=== PATIENT | female | born 1955 | race Caucasian/White ===

== ENCOUNTER 2017-04-14 20:06 | Emergency (ER) | payer OTHER ==
[~2017-04-14] VITALS: Ht 170.2 cm; Wt 137.0 kg
[~2017-04-14 20:06] MED LIST: AMOX500T PO; BENI40TA31 PO; CARV12.5 PO; FLAG500T PO; SOLU40IN IM; TRAM50TA PO; [UNRECOGNIZED DRUG - REMARK]
[2017-04-14 20:11] VITALS: BP 154/79; PULSE 103; RESP 16; TEMP 97.7; O2SAT 99
[2017-04-14] MEDS ORDERED: ATOM25 PO (20:28)
[2017-04-14] MEDS ORDERED: FLUO1TAB3 PO (20:28)
[2017-04-14] MEDS ORDERED: LANTUS2P SQ (20:28)
[2017-04-14] MEDS ORDERED: NOVOLOGP2 SQ (20:28)
[2017-04-14] MEDS ORDERED: CARV12.5 PO (20:28)
[2017-04-14] MEDS ORDERED: LIDOCAINE HCL 1% 50 ML VIAL INFIL ONE (20:45)
[2017-04-14] MEDS ORDERED: LIDOCAINE HCL 1% 20 ML VIAL INFIL ONE (21:00)
[2017-04-14] MEDS ORDERED: CEPHALEXIN MONOHYDRATE 500 MG CAP PO ONE (21:45)
[2017-04-14] MEDS ORDERED: SULFAMETHOXAZOLE-TRIMETHOPRIM DS 800-160 MG TAB PO ONE (21:45)
[2017-04-14] MEDS ORDERED: CEPH-460 PO (21:50)
[2017-04-14] MEDS ORDERED: BACT800T5 PO (21:50)
--- NOTE | 2017-04-14 21:51 | RADRPT ---
EXAM DATE/TIME: 04/14/2017 20:58 [facility] COMPARISON: No previous studies available for comparison. INDICATIONS : Possible spider bite to left side lower abdomen. MEDICAL HISTORY : Diabetes mellitus type II. SURGICAL HISTORY : None. ENCOUNTER: Initial ACUITY: 2 days PAIN SCORE: 6/10 LOCATION: Left lower quadrant FINDINGS: The bowel gas is nonspecific. There are no signs of obstruction or free air for technique. No defini te calcified stones are identified for technique. CONCLUSION: Nonspecific abdomen. KKymberly Underwood MD on April 14, 2017 at 21:48 Board Certified Radiologist. This report was verified electronically.
--- NOTE | 2017-04-14 21:51 | PD ---
HPI Chief Complaint: Skin Problem Time Seen by Provider: 20:37 Travel History International Travel<30 days: No Contact w/Intl Traveler<30days: No Traveled to known affect area: No History of Present Illness HPI Patient is a 61-year-old female who comes in complaining of a boil to the left side of her abdomen. She says it has been there for 4 days and is getting worse. She has not noticed any draining from the area. He says it is mildly tender. She has not taken anything for the pain. She is not sure if she got bitten by a spider or if it is from injecting herself with insulin. She denies fever or chills. She has had these in the past. PFSH Past Medical History Asthma: Yes Autoimmune Disease: No Blood Disorders: No Depression: Yes Heart Rhythm Problems: No Cancer: No Cardiovascular Problems: Yes High Cholesterol: No Chest Pain: No Congestive Heart Failure: No COPD: Yes Cerebrovascular Accident: Yes Diabetes: Yes Patient Takes Glucophage: No Diminished Hearing: No Diverticulitis: Yes Endocrine: Yes Genitourinary: No Hypertension: Yes Immune Disorder: No Musculoskeletal: No Neurologic: No Psychiatric: Yes Reproductive: No Respiratory: Yes (COPD) Migraines: No Myocardial Infarction: No Sleep Apnea: No Thyroid Disease: No Tetanus Vaccination: Unknown Influenza Vaccination: No PNEUMOCCOCAL Vaccine (Year): 1 ?: Not Menopausal: Yes Past Surgical History Abdominal Surgery: Yes (DIVERTICULITIS AND ABCESSES) Cardiac Surgery: No Section: Yes Ear Surgery: No Endocrine Surgery: No Eye Surgery: No Genitourinary Surgery: No Gynecologic Surgery: Yes Oral Surgery: No Thoracic Surgery: No Tonsillectomy: Yes Other Surgery: Yes (RIGHT BREAST BIOPSY) Social History Alcohol Use: No Tobacco Use: No Substance Use: No Allergies-Medications (Allergen,Severity, Reaction): Coded Allergies: ciprofloxacin (Unverified Allergy, Severe, 11/24/16) STATES THINKS IT CAUSED TENDON RUPTURE IN PAST guaifenesin (Unverified Allergy, Severe, LEGS RESTLESS, 11/24/16) latex (Unverified Allergy, Severe, ITCHING, 11/24/16) lorazepam (Unverified Allergy, Severe, STATES KEPT HER UP ALL NIGHT , 11/24) trazodone (Unverified Allergy, Severe, RESTLESS LEG SYNDROME, 11/24/16) Uncoded Allergies: "ANYTHING PURPLE" (Adverse Reaction, Unknown, 04/29/14) Reported Meds & Prescriptions Reported Meds & Active Scripts Active Reported Lantus Inj (Insulin Glargine) 1,000 Unit/10 Ml Vial 10 Units SQ HS Novolog Inj (Insulin Aspart) 1,000 Unit/10 Ml Vial 0 SQ DIRECTED Sliding Scale as directed. Fluoxetine (Fluoxetine HCl) 20 Mg Tab 20 Mg PO DAILY Strattera (Atomoxetine HCl) 25 Mg Cap 25 Mg PO DAILY Coreg (Carvedilol) 12.5 Mg Tab 12.5 Mg PO BID Review of Systems General / Constitutional: No: Fever, Chills HENT: No: Headaches, Lightheadedness Cardiovascular: No: Chest Pain or Discomfort Respiratory: No: Shortness of Breath Gastrointestinal: No: Nausea, Vomiting Genitourinary: No: Dysuria Musculoskeletal: No: Myalgias, Weakness Skin: Positive Lesions, No Hives Neurologic: No: Weakness, Dizziness Physical Exam Narrative GENERAL: Awake and alert, in no acute distress. SKIN: Focused skin assessment warm/dry. 4 cm circular area of erythema and warmth to the left lower abdominal wall, small area of fluctuance. HEAD: Atraumatic. Normocephalic. EYES: Pupils equal and round. No scleral icterus. ENT: Mucous membranes pink and moist. CARDIOVASCULAR: Regular rate and rhythm. No murmur appreciated. RESPIRATORY: No accessory muscle use. Clear to auscultation. Breath sounds equal bilaterally. GASTROINTESTINAL: Abdomen soft, non-tender, nondistended. NEUROLOGICAL: Awake and alert. No obvious cranial nerve deficits. Motor grossly within normal limits. Normal speech. Data Data Last Documented VS Vital Signs Date Time Temp Pulse Resp B/P (MAP) Pulse Ox O2 Delivery O2 Flow Rate FiO2 04/14/17 20:11 97.7 103 16 154/79 (104) 99 Orders Orders Abdomen, Kub Only (04/14/17 ) Lidocaine 1% Inj (Xylocaine 1% Inj) (04/14/17 21:00) Sulfamet-Trimeth Ds 800-160 Mg (Bactrim (04/14/17 21:45) Cephalexin (Keflex) (04/14/17 21:45) MDM Medical Decision Making Medical Screen Exam Complete: Yes Emergency Medical Condition: Yes Medical Record Reviewed: Yes Differential Diagnosis Cellulitis versus abscess versus foreign body Narrative Course Patient is a 61-year-old female comes in because of a boil to her lower abdominal wall. Exam shows an area of fluctuance with erythema and warmth. X- ray obtained shows no evidence of foreign body. The abscess was drained and bandaged. Patient given her first dose of Bactrim and Keflex here. Discharged with prescriptions for Bactrim and Keflex. Advised to take all the antibiotics. Advised to keep the area clean and dry. Advised follow-up with her doctor. Advised to return to the ED as needed for any worsening symptoms. Procedures Procedure Narrative INCISION AND DRAINAGE OF ABSCESS: The area was prepped and was sterilely draped. A subcutaneous wheal of 1 % Xylocaine with a total number 8 mL was used to anesthetize the area properly. A number 11 scalpel was used to make a [ -] -cm incision across the area of the abscess. The abscess was drained, complex loculations were broken down, and irrigated with normal saline. Sterile dressing applied. Diagnosis Primary Impression: Abscess Patient Instructions: Abscess (ED), General Instructions Additional Instructions: Take all of your antibiotic. Keep the area clean and dry. Apply warm compresses. Follow-up with your doctor. Return to the ED as needed for any worsening symptoms. Scripts Sulfamethoxazole-Trimethoprim (Bactrim DS) 800-160 Mg Tab 1 TAB PO BID for Infection, #14 TAB 0 Refills Prov: Jazmyn Valero MD 04/14/17 Cephalexin (Keflex) 500 Mg Capsule 500 MG PO QID for Infection for 7 Days, CAP 0 Refills Prov: Jazmyn Valero MD 04/14/17 Disposition: 01 DISCHARGE HOME Condition: Stable Jazmyn Valero MD Apr 14, 2017 21:50
== END 2017-04-14 21:59 | disposition home or self-care (01) ==
LOC: PHEFT 20:06
DX: L02.211 Cutaneous abscess of abdominal wall (principal); J45.909 Unspecified asthma, uncomplicated; F32.9 Major depressive disorder, single episode, unspecified; J44.9 Chronic obstructive pulmonary disease, unspecified; E11.9 Type 2 diabetes mellitus without complications; I10 Essential (primary) hypertension; Z86.73 Personal history of transient ischemic attack (TIA), and cerebral infarction without residual deficits; Z79.4 Long term (current) use of insulin; Z79.899 Other long term (current) drug therapy
CPT/HCPCS: 10060; 74018

== ENCOUNTER 2017-04-25 18:52 | Emergency (ER) | payer OTHER ==
[~2017-04-25] VITALS: Ht 170.2 cm; Wt 137.7 kg
[2017-04-25] VITALS (8 sets, daily range): BP systolic 150–222; BP diastolic 78–104; PULSE 83–104; RESP 20–24; TEMP 97.9–98.3; O2SAT 92–98
[~2017-04-25 18:52] MED LIST changes: -AMOX500T PO; +ATOM25 PO; +BACT800T5 PO; -BENI40TA31 PO; +CEPH-460 PO; -FLAG500T PO; +FLUO1TAB3 PO; +LANTUS2P SQ; +NOVOLOGP2 SQ; -SOLU40IN IM; -TRAM50TA PO; -[UNRECOGNIZED DRUG - REMARK]
[2017-04-25] MEDS ORDERED: BENI40TA7 PO (20:23)
[2017-04-25] MEDS ORDERED: SODIUM CHLORIDE 0.9% FLUSH 10 ML FLUSH IVF PRN (20:30)
[2017-04-25] MEDS ORDERED: methylPREDNISolone SOD SUCC 125 MG/2 ML VIAL IV PUSH ONE (20:30)
[2017-04-25] MEDS: RESP: ALBUTEROL 2.5 MG/IPRATROPIUM 0.5 MG NEB (SCH) INH ×3 (20:32→20:54)
--- NOTE | 2017-04-25 20:42 | RADRPT ---
EXAM DATE/TIME: 04/25/2017 20:26 [facility] COMPARISON: No previous studies available for comparison. INDICATIONS : Shortness of breath. MEDICAL HISTORY : Hypertension. Chronic obstructive pulmonary disease. Asthma. SURGICAL HISTORY : None. ENCOUNTER: Initial ACUITY: 2 weeks PAIN SCORE: 0/10 LOCATION: Bilateral chest FINDINGS: A single view of the chest demonstrates the lungs to be symmetrically aerated without evidence of mas s, infiltrate or effusion. The cardiomediastinal contours are unremarkable. Osseous structures are intact. CONCLUSION: No evidence of acute cardiopulmonary disease. Justin Harding MD on April 25, 2017 at 20:39 Board Certified Radiologist. This report was verified electronically.
[2017-04-25 20:51] LABS: BASOPHIL # 0.1 TH/MM3 (0-0.2); BASOPHIL % 0.8 % (0.0-2.0); EOSINOPHIL # 0.1 TH/MM3 (0-0.4); EOSINOPHIL % 1.3 % (0.0-4.0); HEMATOCRIT 42.4 % (35.0-46.0); HEMOGLOBIN 13.5 GM/DL (11.6-15.3); LYMPH % 29.7 % (9.0-44.0); LYMPHOCYTE # 3.2 TH/MM3 (1.0-4.8); MEAN CELL VOLUME 89.3 FL (80.0-100.0); MEAN CORPUSCULAR HEMOGLOBIN 28.4 PG (27.0-34.0); MEAN CORPUSCULAR HGB CONC 31.8 % (32.0-36.0); MEAN PLATELET VOLUME 7.6 FL (7.0-11.0); MONO % 4.8 % (0.0-8.0); MONOCYTE # 0.5 TH/MM3 (0-0.9); NEUT % 63.4 % (16.0-70.0); PLATELET COUNT 364 TH/MM3 (150-450); RED BLOOD COUNT 4.75 MIL/MM3 (4.00-5.30); RED CELL DISTRIBUTION WIDTH 13.5 % (11.6-17.2); WHITE BLOOD COUNT 10.9 TH/MM3 (4.0-11.0)
[2017-04-25 20:59] LABS: CHLORIDE 94 MEQ/L (98-107); SODIUM (NA) 131 MEQ/L (136-145)
--- NOTE | 2017-04-25 21:01 | PD ---
HPI Chief Complaint: Respiratory Symptoms Time Seen by Provider: 20:13 Travel History International Travel<30 days: No Contact w/Intl Traveler<30days: No Traveled to known affect area: No History of Present Illness HPI 61-year-old female with history of COPD here for evaluation of cough for 2 weeks. Patient reports she was seen in the emergency department 2 weeks ago for an abdominal wall abscess and was prescribed Bactrim and Keflex and reports that this is improved significantly. She states that she has had a cough for the past 2 weeks, but figure that because she was on antibiotics it should be helping. She occasionally gets short of breath which is worse with exertion, better with rest. Occasionally she has some sharp back and chest pains that is worse with coughing. She denies any history of cardiac disease. No history of DVT or PE. Cough is only minimally productive. She denies hemoptysis. She reports having bronchitis in the past and states this feels similar. PFSH Past Medical History Asthma: Yes Autoimmune Disease: No Blood Disorders: No Depression: Yes Heart Rhythm Problems: No Cancer: No Cardiovascular Problems: Yes High Cholesterol: No Chest Pain: No Congestive Heart Failure: No COPD: Yes Cerebrovascular Accident: Yes Diabetes: Yes Patient Takes Glucophage: No Diminished Hearing: No Diverticulitis: Yes Endocrine: Yes Genitourinary: No Hypertension: Yes Immune Disorder: No Musculoskeletal: No Neurologic: No Psychiatric: Yes Reproductive: No Respiratory: Yes (COPD) Migraines: No Myocardial Infarction: No Sleep Apnea: No Thyroid Disease: No PNEUMOCCOCAL Vaccine (Year): 1 Menopausal: Yes Past Surgical History Abdominal Surgery: Yes (DIVERTICULITIS AND ABCESSES) Cardiac Surgery: No Section: Yes Ear Surgery: No Endocrine Surgery: No Eye Surgery: No Genitourinary Surgery: No Gynecologic Surgery: Yes Oral Surgery: No Thoracic Surgery: No Tonsillectomy: Yes Other Surgery: Yes (RIGHT BREAST BIOPSY) Social History Alcohol Use: No Tobacco Use: No Substance Use: No Allergies-Medications (Allergen,Severity, Reaction): Coded Allergies: ciprofloxacin (Verified Allergy, Severe, 04/25/17) STATES THINKS IT CAUSED TENDON RUPTURE IN PAST guaifenesin (Verified Allergy, Severe, LEGS RESTLESS, 04/25/17) latex (Verified Allergy, Severe, ITCHING, 04/25/17) lorazepam (Verified Allergy, Severe, STATES KEPT HER UP ALL NIGHT , ) trazodone (Verified Allergy, Severe, RESTLESS LEG SYNDROME, 04/25/17) Uncoded Allergies: "ANYTHING PURPLE" (Adverse Reaction, Unknown, 04/29/14) Reported Meds & Prescriptions Reported Meds & Active Scripts Active Lantus Inj (Insulin Glargine) 1,000 Unit/10 Ml Vial 10 Units SQ HS 30 Days Novolog Inj (Insulin Aspart) 1,000 Unit/10 Ml Vial 0 SQ DIRECTED Sliding Scale as directed. Ventolin Hfa 18 GM Inh (Albuterol Sulfate) 90 Mcg/Act Aer 2 Puff INH Q6H PRN Albuterol Neb (Albuterol Sulfate) 0.63 Mg/3 Ml Neb 0.63 Mg NEB Q6HR NEB PRN Zithromax Z-Orion (Azithromycin) 250 Mg Dspk 250 Mg PO DIRECTED 500 MG (2 tabs) day 1, then 1 tab days 2-5. Bactrim DS (Sulfamethoxazole-Trimethoprim) 800-160 Mg Tab 1 Tab PO BID Keflex (Cephalexin) 500 Mg Capsule 500 Mg PO QID 7 Days Reported Benicar Hct (Olmesartan-Hydrochlorothiazide) 40-25 mg Tab 1 Tab PO DAILY Lantus Inj (Insulin Glargine) 1,000 Unit/10 Ml Vial 10 Units SQ HS Novolog Inj (Insulin Aspart) 1,000 Unit/10 Ml Vial 0 SQ DIRECTED Sliding Scale as directed. Fluoxetine (Fluoxetine HCl) 20 Mg Tab 20 Mg PO DAILY Strattera (Atomoxetine HCl) 25 Mg Cap 25 Mg PO DAILY Coreg (Carvedilol) 12.5 Mg Tab 12.5 Mg PO BID Review of Systems Except as stated in HPI: all other systems reviewed are Neg Physical Exam Narrative GENERAL: Well-developed, well-nourished, overweight, comfortable, no apparent distress. SKIN: Focused skin assessment warm/dry. No rash. No pallor. HEAD: Atraumatic. Normocephalic. EYES: Pupils equal and round. No scleral icterus. No injection or drainage. ENT: Mucous membranes pink and moist. Normal pharynx. NECK: Trachea midline. No JVD. CARDIOVASCULAR: Regular rate and rhythm. RESPIRATORY: No accessory muscle use. Clear to auscultation. Breath sounds equal bilaterally. GASTROINTESTINAL: Abdomen soft, non-tender, nondistended. MUSCULOSKELETAL: No obvious deformities. No clubbing. No cyanosis. No edema. NEUROLOGICAL: Awake and alert. No obvious cranial nerve deficits. Motor grossly within normal limits. Normal speech. PSYCHIATRIC: Appropriate mood and affect; insight and judgment normal. Data Data Last Documented VS Vital Signs Date Time Temp Pulse Resp B/P (MAP) Pulse Ox O2 Delivery O2 Flow Rate FiO2 04/25/17 21:26 101 20 175/91 (119) 96 Room Air 04/25/17 19:57 98.3 Orders Orders Complete Blood Count With Diff (04/25/17 20:19) Comprehensive Metabolic Panel (04/25/17 20:19) B-Type Natriuretic Peptide (04/25/17 20:19) D-Dimer (04/25/17 20:19) Act Partial Throm Time (Ptt) (04/25/17 20:19) Prothrombin Time / Inr (Pt) (04/25/17 20:19) Ckmb (Isoenzyme) Profile (04/25/17 20:19) Troponin I (04/25/17 20:19) Influenzae A/B Antigen (04/25/17 20:19) Blood Culture (04/25/17 20:19) Iv Access Insert/Monitor (04/25/17 20:19) Electrocardiogram (04/25/17 20:19) Ecg Monitoring (04/25/17 20:19) Oximetry (04/25/17 20:19) Oxygen Administration (04/25/17 20:19) Chest, Single Ap (04/25/17 20:19) Sodium Chloride 0.9% Flush (Ns Flush) (04/25/17 20:30) Methylprednisolone So Succ Inj (Solumedr (04/25/17 20:30) Albuterol-Ipratropium Neb (Duoneb Neb) (04/25/17 20:30) Insulin Human Regular Inj (Novolin R Inj (04/25/17 22:00) Sodium Chlor 0.9% 1000 Ml Inj (Ns 1000 M (04/25/17 22:00) Insulin Human Regular Inj (Novolin R Inj (04/25/17 23:00) Sodium Chlor 0.9% 1000 Ml Inj (Ns 1000 M (04/25/17 23:30) Insulin Human Regular Inj (Novolin R Inj (04/25/17 23:30) Ed Discharge Order (04/26/17 00:28) Labs Laboratory Tests Test 04/25/17 20:45 White Blood Count 10.9 TH/MM3 Red Blood Count 4.75 MIL/MM3 Hemoglobin 13.5 GM/DL Hematocrit 42.4 % Mean Corpuscular Volume 89.3 FL Mean Corpuscular Hemoglobin 28.4 PG Mean Corpuscular Hemoglobin Concent 31.8 % Red Cell Distribution Width 13.5 % Platelet Count 364 TH/MM3 Mean Platelet Volume 7.6 FL Neutrophils (%) (Auto) 63.4 % Lymphocytes (%) (Auto) 29.7 % Monocytes (%) (Auto) 4.8 % Eosinophils (%) (Auto) 1.3 % Basophils (%) (Auto) 0.8 % Neutrophils # (Auto) 7.0 TH/MM3 Lymphocytes # (Auto) 3.2 TH/MM3 Monocytes # (Auto) 0.5 TH/MM3 Eosinophils # (Auto) 0.1 TH/MM3 Basophils # (Auto) 0.1 TH/MM3 CBC Comment DIFF FINAL Differential Comment Prothrombin Time 9.4 SEC Prothromb Time International Ratio 0.9 RATIO Activated Partial Thromboplast Time 25.3 SEC D-Dimer Quantitative (PE/DVT) 0.50 MG/L FEU Blood Urea Nitrogen 22 MG/DL Creatinine 1.10 MG/DL Random Glucose 567 MG/DL Total Protein 6.9 GM/DL Albumin 3.2 GM/DL Calcium Level 8.7 MG/DL Alkaline Phosphatase 163 U/L Aspartate Amino Transf (AST/SGOT) 16 U/L Alanine Aminotransferase (ALT/SGPT) 29 U/L Total Bilirubin 0.3 MG/DL Sodium Level 131 MEQ/L Potassium Level 4.8 MEQ/L Chloride Level 94 MEQ/L Carbon Dioxide Level 27.7 MEQ/L Anion Gap 9 MEQ/L Estimat Glomerular Filtration Rate 50 ML/MIN Total Creatine Kinase 71 U/L Troponin I LESS THAN 0.02 NG/ML B-Type Natriuretic Peptide 9 PG/ML MDM Medical Decision Making Medical Screen Exam Complete: Yes Emergency Medical Condition: Yes Medical Record Reviewed: Yes Interpretation(s) EKG: Sinus, rate 89, leftward axis, first-degree AV block, rest of the intervals are normal, no acute ischemic abnormality. Differential Diagnosis Bronchitis, pneumonia, PE, ACS unlikely, pulmonary edema, pneumothorax, Narrative Course Vital signs reviewed. CBC is unremarkable. CMP is remarkable for sodium 131, chloride 94, random glucose 567. Bicarbonate is 27.7. The patient is not in DKA. Cardiac enzymes are negative. BNP is 9. D-dimer is 0.50. Influenza is negative. Chest x-ray shows no acute cardiopulmonary disease. The patient was given 3 DuoNeb treatments and IV site Medrol and on reassessment she reports feeling significantly improved. She is not in DKA. She was given IV insulin here in the emergency department as well as IV fluids with improvement in blood glucose. She tells me that she ran out of her insulin a couple of weeks ago. I will give her a refill prescription for her NovoLog and Lantus, and she will closely monitor her blood sugar at home. Patient likely has bronchitis and will be discharged home with a prescription for albuterol as well as a Z-Orion. I will not start her on prednisone that she is already hyperglycemic and this will likely worsen her hyperglycemia. She was advised to follow up with her primary care physician this week and is stable for discharge home with further outpatient follow-up. She was informed on when to return to the emergency department. She verbalizes understanding and agreement with plan. Diagnosis Primary Impression: Bronchitis Additional Impression: Hyperglycemia Referrals: Primary Care Physician 3 days Additional Instructions: Follow-up with your primary care physician this week. Take medications as prescribed. Return to the emergency department for worsening symptoms or any other concerns. Scripts Insulin Glargine Inj (Lantus Inj) 1,000 Unit/10 Ml Vial 10 UNITS SQ HS for Blood Sugar Management for 30 Days, VIAL 0 Refills Prov: Lester Ramirez MD 04/25/17 Insulin Aspart Inj (Novolog Inj) 1,000 Unit/10 Ml Vial 0 SQ DIRECTED for Blood Sugar Management, #10 ML 0 Refills Sliding Scale as directed. Prov: Lester Ramirez MD 04/25/17 Albuterol 18 GM Inh (Ventolin Hfa 18 GM Inh) 90 Mcg/Act Aer 2 PUFF INH Q6H Y for SHORTNESS OF BREATH, #1 INHALER 0 Refills Prov: Lester Ramirez MD 04/25/17 Albuterol Neb (Albuterol Neb) 0.63 Mg/3 Ml Neb 0.63 MG NEB Q6HR NEB Y for SHORTNESS OF BREATH, #25 NEBULE 0 Refills Prov: Lester Ramirez MD 04/25/17 Azithromycin (Zithromax Z-Orion) 250 Mg Dspk 250 MG PO DIRECTED for Infection, #1 DSPK 0 Refills 500 MG (2 tabs) day 1, then 1 tab days 2-5. Prov: Lester Ramirez MD 04/25/17 Disposition: 01 DISCHARGE HOME Condition: Stable Lester Ramirez MD Apr 25, 2017 21:01
[2017-04-25 21:02] LABS: CALCIUM 8.7 MG/DL (8.5-10.1)
[2017-04-25 21:03] LABS: ALBUMIN 3.2 GM/DL (3.4-5.0); BICARBONATE 27.7 MEQ/L (21.0-32.0); BLOOD UREA NITROGEN 22 MG/DL (7-18)
[2017-04-25 21:06] LABS: ALT (GPT) 29 U/L (10-53); AST (GOT) 16 U/L (15-37); GLOMERULAR FILTRATION RATE 50 ML/MIN (>89)
[2017-04-25 21:07] LABS: TOTAL BILIRUBIN ADULT 0.3 MG/DL (0.2-1.0)
[2017-04-25 21:08] LABS: TOTAL PROTEIN 6.9 GM/DL (6.4-8.2)
[2017-04-25 21:22] LABS: INTERNATIONAL NORMALIZED RATIO 0.9 RATIO; PROTHROMBIN TIME - PATIENT 9.4 SEC (9.8-11.6)
[2017-04-25 21:26] LABS: D-DIMER 0.5 MG/L FEU (0.00-0.50)
[2017-04-25 21:37] LABS: ALKALINE PHOSPHATASE 163 U/L (45-117); TROPONIN I LESS THAN 0.02 NG/ML (0.02-0.05)
[2017-04-25 21:38] LABS: GLUCOSE,RANDOM 567 MG/DL (74-106)
[2017-04-25] MEDS ORDERED: INSULIN HUMAN REGULAR 1,000 UNITS/10 ML VIAL IV PUSH ONE ×2 (22:00→23:00)
[2017-04-25] MEDS ORDERED: SODIUM CHLOR 0.9% 1000 ML INJ 1,000 ML IV ONE ×2 (22:00→23:30)
[2017-04-25] MEDS ORDERED: ZITHTAB PO (22:14)
[2017-04-25] MEDS ORDERED: VENTAER INH (22:14)
[2017-04-25] MEDS ORDERED: ALBU0.63 NEB (22:14)
[2017-04-25] MEDS ORDERED: LANTUS2P SQ (22:40)
[2017-04-25] MEDS ORDERED: NOVOLOGP2 SQ (22:40)
[2017-04-25] MEDS ORDERED: INSULIN HUMAN REGULAR 1,000 UNITS/10 ML VIAL SQ ONE (23:30)
[2017-04-26 01:06] VITALS: BP 156/85
--- NOTE | 2017-04-26 15:07 | EKG ---
Date Performed: 04/25/2017 Time Performed: 20:28:17 PTAGE: 61 years EKG: Sinus rhythm WITH FIRST DEGREE AV BLOCK Since previous tracing, no significant change noted ABNORMAL ECG PREVIOUS TRACING : 07/22/2011 14.01 DOCTOR: Darek Nova Interpretating Date/Time 04/26/2017 15:06:09
== END 2017-04-26 01:20 | disposition home or self-care (01) ==
LOC: PHED 18:52
DX: J40 Bronchitis, not specified as acute or chronic (principal); E11.65 Type 2 diabetes mellitus with hyperglycemia; R94.31 Abnormal electrocardiogram [ECG] [EKG]; R06.02 Shortness of breath; J44.9 Chronic obstructive pulmonary disease, unspecified; I10 Essential (primary) hypertension; Z79.4 Long term (current) use of insulin
CPT/HCPCS: 71045; 80053; 82550; 83880; 84484; 85025; 85379; 85610; 85730; 87040; 87804; 93005; 94640; 94664; 96361; 96372; 96374; 96375; 96376; 99285; J1815; J2930; J7030

== ENCOUNTER 2017-09-13 08:36 | Emergency (ER) | payer OTHER ==
[~2017-09-13] VITALS: Ht 171.4 cm; Wt 114.8 kg
[~2017-09-13 08:36] MED LIST changes: +ALBU0.63 NEB; +BENI40TA7 PO; +VENTAER INH; +ZITHTAB PO
[2017-09-13 08:39] VITALS: BP 150/80; PULSE 79; RESP 16; TEMP 97.8; O2SAT 98
[2017-09-13] MEDS ORDERED: LOVA10TA PO (09:13)
[2017-09-13] MEDS ORDERED: TRAM50TA PO (09:56)
--- NOTE | 2017-09-13 10:00 | PD ---
HPI Chief Complaint: Pain: Acute or Chronic Time Seen by Provider: 08:52 Travel History International Travel<30 days: No Contact w/Intl Traveler<30days: No Traveled to known affect area: No History of Present Illness HPI The patient was seen and examined in the presence of the nurse. This patient complains of pain that starts in her neck and radiates down her left arm to the level of the hand. It is just a strip on the top of her arm. This is been going on intermittently for full year. She seen her doctor during this year but never really discussed it with the doctor. No injury. She is currently not having pain. When she woke up this morning she did have pain. No motor weakness or sensory loss. She occasionally gets pins and needles in her hand. Severity is moderate. No alleviating factors PFSH Past Medical History Hx Anticoagulant Therapy: No Asthma: Yes Autoimmune Disease: No Blood Disorders: No Depression: Yes Heart Rhythm Problems: No Cancer: No Cardiovascular Problems: Yes (ENLARGED HEART AND MURMUR PER PT., HTN, CHOL) High Cholesterol: No Chest Pain: No Congestive Heart Failure: No COPD: Yes Cerebrovascular Accident: Yes (TIA'S) Diabetes: Yes Patient Takes Glucophage: No Diminished Hearing: No Diverticulitis: Yes Endocrine: Yes Genitourinary: No Hypertension: Yes Immune Disorder: No Musculoskeletal: No Neurologic: No Psychiatric: Yes Reproductive: No Respiratory: Yes (COPD) Migraines: No Myocardial Infarction: No Sleep Apnea: No Thyroid Disease: No Tetanus Vaccination: Unknown Influenza Vaccination: No PNEUMOCCOCAL Vaccine (Year): 1 ?: Not Menopausal: Yes Past Surgical History Abdominal Surgery: Yes (DIVERTICULITIS AND ABCESSES) Cardiac Surgery: No Section: Yes Ear Surgery: No Endocrine Surgery: No Eye Surgery: No Genitourinary Surgery: No Gynecologic Surgery: Yes Oral Surgery: No Thoracic Surgery: No Tonsillectomy: Yes Other Surgery: Yes (RIGHT BREAST BIOPSY) Social History Alcohol Use: No Tobacco Use: No Substance Use: No Allergies-Medications (Allergen,Severity, Reaction): Coded Allergies: ciprofloxacin (Verified Allergy, Severe, 09/13/17) STATES THINKS IT CAUSED TENDON RUPTURE IN PAST guaifenesin (Verified Allergy, Severe, LEGS RESTLESS, 09/13/17) insulin detemir (Verified Allergy, Severe, 09/13/17) latex (Verified Allergy, Severe, ITCHING, 09/13/17) lisinopril (Verified Allergy, Severe, 09/13/17) lorazepam (Verified Allergy, Severe, STATES KEPT HER UP ALL NIGHT , 09/13/17 ) trazodone (Verified Allergy, Severe, RESTLESS LEG SYNDROME, 09/13/17) Uncoded Allergies: "ANYTHING PURPLE" (Adverse Reaction, Unknown, 04/29/14) Reported Meds & Prescriptions Reported Meds & Active Scripts Active Tramadol (Tramadol HCl) 50 Mg Tab 50 Mg PO Q6H PRN Lantus Inj (Insulin Glargine) 1,000 Unit/10 Ml Vial 10 Units SQ HS 30 Days Novolog Inj (Insulin Aspart) 1,000 Unit/10 Ml Vial 0 SQ DIRECTED Sliding Scale as directed. Reported Lovastatin 10 Mg Tab Unknown Dose PO DAILY Lantus Inj (Insulin Glargine) 1,000 Unit/10 Ml Vial 10 Units SQ HS Novolog Inj (Insulin Aspart) 1,000 Unit/10 Ml Vial 0 SQ DIRECTED Sliding Scale as directed. Fluoxetine (Fluoxetine HCl) 20 Mg Tab 20 Mg PO DAILY Strattera (Atomoxetine HCl) 25 Mg Cap 25 Mg PO DAILY Coreg (Carvedilol) 12.5 Mg Tab 12.5 Mg PO BID Review of Systems General / Constitutional: No: Fever Eyes: No: Visual changes HENT: No: Headaches Cardiovascular: No: Chest Pain or Discomfort Respiratory: No: Shortness of Breath Gastrointestinal: No: Abdominal Pain Genitourinary: No: Dysuria Musculoskeletal: Positive: Pain Skin: No Rash Neurologic: Positive: Paresthesia, No: Weakness Psychiatric: No: Depression Endocrine: No: Polydipsia Hematologic/Lymphatic: No: Easy Bruising Physical Exam Narrative GENERAL: Well-nourished, well-developed patient in no apparent distress. SKIN: Focused skin assessment reveals no rash and nodules. Skin is Warm and dry. HEAD: Atraumatic. Normocephalic. EYES: Pupils equal and round. No scleral icterus. No injection or drainage. ENT: No nasal bleeding or discharge. Mucous membranes pink and moist. NECK: Trachea midline. No JVD. No midline tenderness. No bruising or swelling. CARDIOVASCULAR: Regular rate and rhythm. No murmur appreciated. RESPIRATORY: No accessory muscle use. Clear to auscultation. Breath sounds equal bilaterally. GASTROINTESTINAL: Abdomen soft, non-tender, nondistended. Hepatic and splenic margins not palpable. MUSCULOSKELETAL: No obvious deformities. No clubbing. No cyanosis. No edema. NEUROLOGICAL: Awake and alert. No obvious cranial nerve deficits. Motor grossly within normal limits. Normal speech. Sensation intact PSYCHIATRIC: Appropriate mood and affect; insight and judgment normal. Data Data Last Documented VS Vital Signs Date Time Temp Pulse Resp B/P (MAP) Pulse Ox O2 Delivery O2 Flow Rate FiO2 09/13/17 08:39 97.8 79 16 150/80 (103) 98 MDM Medical Decision Making Medical Screen Exam Complete: Yes Emergency Medical Condition: Yes Medical Record Reviewed: Yes Differential Diagnosis Radiculopathy, paresthesia, cervical disc herniation, arthritis Narrative Course I have reviewed the patient's electronic medical record. Patient is neurologically intact without objective findings. This is a chronic problem going on for a full year. She should follow-up with her physician and discuss it at length. No indication for emergent studies. Wrote her does not tramadol for symptom relief Diagnosis Primary Impression: Radiculopathy affecting upper extremity Additional Instructions: The patient was advised to follow up with their physician and return if they worsen. The patient was warned about potential sedation for the medications they will receive on prescription. Med/Other Pt SpecificInfo: Prescription(s) given Scripts Tramadol (Tramadol) 50 Mg Tab 50 MG PO Q6H Y for PAIN, #12 TAB 0 Refills Prov: Issa Richey MD 09/13/17 Disposition: 01 DISCHARGE HOME Condition: Stable Issa Richey MD Sep 13, 2017 10:00
== END 2017-09-13 10:22 | disposition home or self-care (01) ==
LOC: PHED 08:36
DX: M54.10 Radiculopathy, site unspecified (principal); E11.9 Type 2 diabetes mellitus without complications; F32.9 Major depressive disorder, single episode, unspecified; I10 Essential (primary) hypertension; J44.9 Chronic obstructive pulmonary disease, unspecified; Z86.73 Personal history of transient ischemic attack (TIA), and cerebral infarction without residual deficits
CPT/HCPCS: 99281

== ENCOUNTER 2017-09-23 16:26 | Emergency (ER) | payer OTHER ==
[~2017-09-23] VITALS: Ht 170.2 cm; Wt 143.5 kg
[~2017-09-23 16:26] MED LIST changes: -ALBU0.63 NEB; -BACT800T5 PO; -BENI40TA7 PO; -CEPH-460 PO; +LOVA10TA PO; +TRAM50TA PO; -VENTAER INH; -ZITHTAB PO
[2017-09-23 16:32] VITALS: PULSE 84; RESP 16; TEMP 97.6; O2SAT 97
[2017-09-23] MEDS ORDERED: BUSP10TA PO (16:57)
[2017-09-23] MEDS ORDERED: LOSA50TA PO (16:57)
[2017-09-23] MEDS ORDERED: VITA1000 PO (16:57)
[2017-09-23] MEDS ORDERED: OMEP20TA93 PO (16:57)
[2017-09-23] MEDS ORDERED: ACYC800T PO (17:05)
[2017-09-23] MEDS ORDERED: CARB200T PO (17:05)
--- NOTE | 2017-09-23 17:11 | PD ---
HPI Chief Complaint: Skin Problem Time Seen by Provider: 16:56 Travel History International Travel<30 days: No Contact w/Intl Traveler<30days: No Traveled to known affect area: No History of Present Illness HPI 62-year-old female presents emergency department for evaluation of a rash to the left scalp and ear is been present for 1 week. Says that over the last couple days she has had associated pain of the ear and cheek so she decided to come in today for evaluation. Patient also says over the last day she has developed sharp, stabbing pain located in the left cheek that starts suddenly before resolving spontaneously. These episodes last approximately 5-10 seconds and radiate from the cheek and somewhat outward into the left side of the face. The pain is moderate to severe when it occurs and she has no pain when it goes away. She denies fevers or chills. She denies blurred vision or eye pain. Says she has had previous episodes of this rash approximately 20 years ago but the sharp pains in her face are new. She has no other complaints today. Says that she has an appointment with her primary care physician on Wednesday but is unable to wait because of the pain. PFSH Past Medical History Hx Anticoagulant Therapy: No Asthma: Yes Autoimmune Disease: No Blood Disorders: No Depression: Yes Heart Rhythm Problems: No Cancer: No Cardiovascular Problems: Yes (HTN) High Cholesterol: No Chest Pain: No Congestive Heart Failure: No COPD: Yes Cerebrovascular Accident: Yes (TIA'S) Diabetes: Yes Patient Takes Glucophage: No Diminished Hearing: No Diverticulitis: Yes Endocrine: Yes Genitourinary: No Hypertension: Yes Immune Disorder: No Musculoskeletal: No Neurologic: No Psychiatric: Yes Reproductive: No Respiratory: Yes (COPD) Migraines: No Myocardial Infarction: No Sleep Apnea: No Thyroid Disease: No Tetanus Vaccination: Unknown Influenza Vaccination: No PNEUMOCCOCAL Vaccine (Year): 1 ?: Not Menopausal: Yes Past Surgical History Abdominal Surgery: Yes (DIVERTICULITIS AND ABCESSES) Cardiac Surgery: No Section: Yes Ear Surgery: No Endocrine Surgery: No Eye Surgery: No Genitourinary Surgery: No Gynecologic Surgery: Yes Oral Surgery: No Thoracic Surgery: No Tonsillectomy: Yes Other Surgery: Yes (RIGHT BREAST BIOPSY) Social History Alcohol Use: No Tobacco Use: No Substance Use: No Allergies-Medications (Allergen,Severity, Reaction): Coded Allergies: ciprofloxacin (Verified Allergy, Severe, 09/23/17) STATES THINKS IT CAUSED TENDON RUPTURE IN PAST guaifenesin (Verified Allergy, Severe, LEGS RESTLESS, 09/23/17) insulin detemir (Verified Allergy, Severe, 09/23/17) latex (Verified Allergy, Severe, ITCHING, 09/23/17) lisinopril (Verified Allergy, Severe, 09/23/17) lorazepam (Verified Allergy, Severe, STATES KEPT HER UP ALL NIGHT , ) trazodone (Verified Allergy, Severe, RESTLESS LEG SYNDROME, 09/23/17) Uncoded Allergies: "ANYTHING PURPLE" (Adverse Reaction, Unknown, 04/29/14) Reported Meds & Prescriptions Reported Meds & Active Scripts Active Carbamazepine 200 Mg Tab 200 Mg PO BID 5 Days Acyclovir 800 Mg Tab 800 Mg PO 5 TIMES A DAY 7 Days Reported Losartan (Losartan Potassium) 50 Mg Tab 50 Mg PO DAILY Buspirone (Buspirone HCl) 10 Mg Tab 10 Mg PO BID Vitamin D-1000 (Cholecalciferol) 1,000 Unit Tab 50,000 Units PO WEEKLY Omeprazole 20 Mg Tab 20 Mg PO DAILY Lovastatin 10 Mg Tab Unknown Dose PO DAILY Lantus Inj (Insulin Glargine) 1,000 Unit/10 Ml Vial 55 Units SQ HS Novolog Inj (Insulin Aspart) 1,000 Unit/10 Ml Vial 0 SQ DIRECTED Sliding Scale as directed. Fluoxetine (Fluoxetine HCl) 20 Mg Tab 20 Mg PO DAILY Strattera (Atomoxetine HCl) 25 Mg Cap 25 Mg PO DAILY Coreg (Carvedilol) 12.5 Mg Tab 12.5 Mg PO BID Review of Systems Except as stated in HPI: all other systems reviewed are Neg Physical Exam Narrative GENERAL: Well-nourished, well-developed patient, in NAD SKIN: Focused skin assessment warm/dry. Left face-ear with clusters of vesicles over erythematous base mildly tender to palpation. Ear canal without lesions or rash. Scattered small, 1-3 mm ulcerations of her forehead and cheek Hernandez sign negative No involvement of the eyelids or eyes HEAD: Normocephalic. Atraumatic. EYES: No scleral icterus. No injection or drainage. PERRLA, EOMI THROAT: No pharyngeal injection, exudates, or tonsillar hypertrophy. Airway is patent. NECK: Supple, trachea midline. No JVD. Mild left anterior cervical lymphadenopathy. No meningismus. CARDIOVASCULAR: Regular rate and rhythm without murmurs, gallops, or rubs. RESPIRATORY: Breath sounds equal bilaterally. No accessory muscle use. No wheezes, rales, or rhonchi MUSCULOSKELETAL: No cyanosis, or edema. BACK: Nontender without obvious deformity. No CVA tenderness. Data Data Last Documented VS Vital Signs Date Time Temp Pulse Resp B/P (MAP) Pulse Ox O2 Delivery O2 Flow Rate FiO2 09/23/17 17:14 80 163/72 (102) 98 09/23/17 16:32 97.6 16 Orders Orders Ed Discharge Order (09/23/17 17:11) MDM Medical Decision Making Medical Screen Exam Complete: Yes Emergency Medical Condition: Yes Differential Diagnosis Herpes zoster, herpes ophthalmicus, postherpetic neuralgia Narrative Course 62-year-old female presents emergency department with trigeminal neuralgia type of symptoms and herpes zoster of the left forehead and scalp. Exam findings demonstrate scattered lesions over the greater occipital nerve distribution. Patient has a history of a very similar rash previously without ocular involvement. I am reassured by this do not suspect there is eye involvement as patient has no symptoms of eye pain or blurred vision. It is evident that patient has having trigeminal neuralgia symptoms on the left as well. She will be discharged with acyclovir and carbamazepine. I advised that she should use caution when taking carbamazepine as it may make you feel drowsy. Advised that she should follow-up with her primary care physician as discussed on Wednesday. Advised that if she develops eye pain or blurred vision that she should return to the emergency department or follow-up with an earth mover immediately. She states understanding will comply. Diagnosis Primary Impression: Trigeminal neuralgia of left side of face Additional Impression: Herpes zoster Qualified Codes: B02.9 - Zoster without complications Referrals: Primary Care Physician Departure Forms: Tests/Procedures, Work Release Enter return to work date: Sep 28, 2017 Additional Instructions: Follow-up the primary care physician Wednesday as discussed. If you develop blurred vision or eye pain follow-up with an eye doctor as soon as possible or return to the emergency department. Take all medications as prescribed. you are contagious until al lesions have scabbed and fallen off. Scripts Carbamazepine (Carbamazepine) 200 Mg Tab 200 MG PO BID for 5 Days, #10 TAB 0 Refills Prov: Shannan Workman MD 09/23/17 Acyclovir (Acyclovir) 800 Mg Tab 800 MG PO 5 TIMES A DAY for Mgmt Viral Infection for 7 Days, TAB 0 Refills Prov: Shannan Workman MD 09/23/17 Disposition: 01 DISCHARGE HOME Condition: Stable Arti Jenkins Sep 23, 2017 17:11
[2017-09-23 17:14] VITALS: BP 163/72
== END 2017-09-23 17:40 | disposition home or self-care (01) ==
LOC: PHEFT 16:26
DX: G50.0 Trigeminal neuralgia (principal); B02.9 Zoster without complications; E11.9 Type 2 diabetes mellitus without complications; F32.9 Major depressive disorder, single episode, unspecified; I10 Essential (primary) hypertension; J44.9 Chronic obstructive pulmonary disease, unspecified; Z86.73 Personal history of transient ischemic attack (TIA), and cerebral infarction without residual deficits
CPT/HCPCS: 99283